=== PATIENT | female | born 1990 ===

== ENCOUNTER 2022-07-27 10:02 | Inpatient (IN) | payer BC ==
[2022-07-27 10:57] LABS: ESTIMATED GFR 97 mL/min (>=60)
[2022-07-27] MEDS ORDERED: Carboprost Tromethamine 250 MCG/1 ML Amp IM PRN (12:04)
[2022-07-27] MEDS ORDERED: Tranexamic Acid 1,000 MG in Sodium Chloride 0.9% 100 ML IV PRN (12:04)
[2022-07-27] MEDS ORDERED: Lidocaine 1% 30 ML SDV INJECT PRN (12:04)
[2022-07-27] MEDS ORDERED: Lactated Ringers 1,000 ML IV ONE (12:04)
[2022-07-27] MEDS ORDERED: Misoprostol 400 MCG (4 X 100 MCG TAB) RECTAL PRN (12:04)
[2022-07-27] MEDS ORDERED: Acetaminophen 325 MG Tab PO PRN (12:04)
[2022-07-27] MEDS ORDERED: Misoprostol 25 MCG (1/4 of 100 MCG) Tab VAG PRN (12:04)
[2022-07-27] MEDS ORDERED: Ondansetron 4 MG/2 ML SDV IVPUSH PRN (12:04)
[2022-07-27] MEDS ORDERED: Methylergonovine 0.2 MG/1 ML Amp IM PRN (12:04)
[2022-07-27] MEDS ORDERED: Sodium Chloride 0.9% 10 ML Syringe FLUSH PRN (12:04)
[2022-07-27] MEDS ORDERED: Misoprostol 50 MCG (1/2 of 100 MCG) Tab VAG ONE ×2 (12:06→15:30)
[2022-07-27] MEDS ORDERED: Lactated Ringers 1,000 ML IV SCH (12:15)
[2022-07-27] MEDS ORDERED: Oxytocin/Normal Saline 30 UNIT/500 ML BAG IV SCH ×2 (12:15)
[2022-07-27] MEDS: Acetaminophen 325 MG Tab PO PRN ×3 (13:15→20:40)
[2022-07-27] MEDS: Lactated Ringers 1,000 ML IV SCH ×2 (13:30→20:44)
[2022-07-28] MEDS ORDERED: Acetaminophen 500 MG Tab PO ONE (00:16)
[2022-07-28] MEDS: Lactated Ringers 1,000 ML IV SCH ×4 (00:27→12:15)
[2022-07-28] MEDS: Acetaminophen 325 MG Tab PO PRN (06:12)
[2022-07-28] MEDS: Sodium Chloride 0.9% 10 ML Syringe FLUSH SCH (06:41)
[2022-07-28] MEDS ORDERED: Nalbuphine 20 MG/1 ML Amp IM STA (09:14)
[2022-07-28] MEDS ORDERED: Morphine PF 1 MG/ML Amp ONE ×2 (12:07→18:32)
[2022-07-28] MEDS ORDERED: Dexmedetomidine 200 MCG/2 ML SDV ONE (12:07)
[2022-07-28] MEDS ORDERED: EPINEPHrine 1 MG/ML SDV ONE (12:19)
[2022-07-28] MEDS ORDERED: Famotidine 20 MG/2 ML SDV IVPUSH PRN (14:16)
[2022-07-28] MEDS ORDERED: Naloxone 2 MG/2 ML Syringe IVPUSH PRN (14:16)
[2022-07-28] MEDS ORDERED: diphenhydrAMINE 50 MG/ML SDV IV PRN (14:16)
[2022-07-28] MEDS ORDERED: Promethazine 25 MG/ML SDV IM PRN (14:16)
[2022-07-28] MEDS ORDERED: Ondansetron 4 MG/2 ML SDV IVPUSH PRN (14:16)
[2022-07-28] MEDS ORDERED: Lactated Ringers 500 ML IV SCH ×2 (14:30)
[2022-07-28] MEDS: ePHEDrine 50 MG/ML SDV IVPUSH PRN ×2 (15:10→15:19)
[2022-07-28] MEDS ORDERED: Citric Acid/Sodium Citrate Solution 30 ML Cup PO ONE (18:07)
[2022-07-28] MEDS ORDERED: ceFAZolin 2 GM in Premix Bag 1 BAG IV ONE (18:07)
[2022-07-28] MEDS ORDERED: Lactated Ringers 1,000 ML IV SCH (18:15)
[2022-07-28] MEDS ORDERED: Succinylcholine 200 MG/10 ML MDV ONE (18:28)
[2022-07-28] MEDS ORDERED: Oxytocin/Normal Saline 60 UNIT/1,000 ML BAG ONE ×2 (18:36→18:46)
[2022-07-28] MEDS ORDERED: Misoprostol 400 MCG (4 X 100 MCG TAB) ONE ×2 (19:40→19:41)
[2022-07-29] MEDS: Lactated Ringers 1,000 ML IV SCH (04:50)
[2022-07-29] MEDS: Acetaminophen/oxyCODONE 325-5 MG Tab PO PRN ×4 (05:43→20:27)
[2022-07-29] MEDS: Sodium Chloride 0.9% 10 ML Syringe FLUSH SCH ×3 (06:14→09:27)
[2022-07-29] MEDS: Ketorolac 30 MG/ML SDV IVPUSH SCH (06:15)
[2022-07-29] MEDS: Simethicone 80 MG Tab.Chew PO SCH ×5 (06:18→20:13)
[2022-07-29] MEDS: Prenatal Multivitamin with Calcium/Folic Acid/Iron Tab PO SCH (09:25)
[2022-07-29] MEDS: Docusate Sodium 100 MG Cap PO PRN (09:25)
[2022-07-29] MEDS ORDERED: Ibuprofen 800 MG Tab PO PRN (14:00)
[2022-07-29] MEDS: Ibuprofen 800 MG Tab PO PRN (17:01)
[2022-07-30] MEDS: Ibuprofen 800 MG Tab PO PRN ×3 (00:41→17:06)
[2022-07-30] MEDS: Acetaminophen/oxyCODONE 325-5 MG Tab PO PRN ×5 (00:41→20:33)
[2022-07-30] MEDS: Prenatal Multivitamin with Calcium/Folic Acid/Iron Tab PO SCH (08:57)
[2022-07-30] MEDS: Ferrous Sulfate 325 MG Tab PO SCH (08:58)
[2022-07-30] MEDS: Simethicone 80 MG Tab.Chew PO SCH ×4 (08:58→20:32)
[2022-07-30] MEDS: Docusate Sodium 100 MG Cap PO PRN (20:33)
[2022-07-31] MEDS: Ibuprofen 800 MG Tab PO PRN (00:36)
[2022-07-31] MEDS: Acetaminophen/oxyCODONE 325-5 MG Tab PO PRN ×3 (00:37→11:00)
[2022-07-31] MEDS: Prenatal Multivitamin with Calcium/Folic Acid/Iron Tab PO SCH (11:00)
[2022-07-31] MEDS: Docusate Sodium 100 MG Cap PO PRN (11:00)
[2022-07-31] MEDS: Ferrous Sulfate 325 MG Tab PO SCH (11:32)
[2022-07-31] MEDS: Simethicone 80 MG Tab.Chew PO SCH (11:32)
== END 2022-07-31 12:15 | disposition home or self-care (01) | DRG 540 ==
LOC: DL.OBCHECK 10:02 → DL.OB 12:04 → UNDOADMIN 13:18 → DL.OB 13:18
PROVIDERS: ADMIT Family Medicine; ATTEND Family Medicine
PROC: 8E0ZXY6 Isolation (ICD-10-PCS; 2022-07-27)
PROC: 10D00Z1 Extraction of Products of Conception, Low, Open Approach (ICD-10-PCS; principal; 2022-07-28)
PROC: 10907ZC Drainage of Amniotic Fluid, Therapeutic from Products of Conception, Via Natural or Artificial Opening (ICD-10-PCS; principal; 2022-07-28)
DX: O14.14 Severe pre-eclampsia complicating childbirth (principal); O98.52 Other viral diseases complicating childbirth; Z3A.37 37 weeks gestation of pregnancy; Z37.0 Single live birth; U07.1 COVID-19; O99.02 Anemia complicating childbirth; D62 Acute posthemorrhagic anemia; O72.1 Other immediate postpartum hemorrhage; O76 Abnormality in fetal heart rate and rhythm complicating labor and delivery; J98.8 Other specified respiratory disorders; O62.0 Primary inadequate contractions
CPT/HCPCS: 36415; 51702; 59025; 81003; 82565; 82570; 83615; 84156; 84450; 84460; 84520; 84550; 85027; A9270-GY; J0330; J0690; J2300; J2405; J2590; J7120